=== PATIENT | female | born 1970 | race Caucasian/White ===

== ENCOUNTER 2025-02-02 12:46 | Outpatient (AMB) | payer OTHER, SELFPAY ==
--- NOTE | 2025-02-02 13:33 | A.OFFPC_ITS ---
Vital Signs 02/02/25 13:36 Height 5 ft 4 in Weight 172 lb BMI 29.5 BP 124/82 Blood Pressure Location Lt brachial Position Sitting Respiration 16 Pulse 83 Pulse Source Pulse Oximeter Temp 98.2 F Temp Source Oral Pulse Oximetry (%) 96 Oxygen Delivery Method Room Air Intake Visit Reasons: New Patient to est care/ med refills/ ? melanoma R Intake Note: Pt is here today as a New Patient to est care/ med refills/ ? melanoma Rt forearm Allergies No Known Allergies Allergy (Verified 02/03/25 15:41) Medication List - Last Reconciled 02/02/25 by Monica Perez MD amlodipine 10 mg PO DAILY atorvastatin 40 mg PO DAILY fenofibrate 54 mg PO DAILY qqbvawjvejk-rwpyegofz-zmcljikm 100-62.5-25 mcg (Trelegy Ellipta) 1 ea inhalation DAILY Tobacco use date assessed: 02/02/25 Dental Screening Dental Screen Date: 02/02/25 Did you have a dental visit in the last 12 months?: Yes Did you have a dental problem in the last 6 months where you did not have access to dental care?: No Was dental information given to patient?: Patient has dentist HPI HPI Comments History of Present Illness Details 54-year-old new patient, here to [facility] with a new PCP . No medical records available for review. Patient states she has hypertension, dyslipidemia currently on amlodipine, atorvastatin and fenofibrate. She also states that she has been diagnosed with COPD and is currently on Trelegy Ellipta, continues to smoke cigarettes, slowly cutting back. She has a hyperpigmented lesion on her right forearm, which she states has been present now for the last several months and is getting bigger. Patient is concerned that it might be skin cancer and would like a referral to Dermatology Clinic for further evaluation and management. [facility] Medical History (Updated 02/02/25 @ 14:17 by Monica Perez MD) Not ready to quit smoking History of in vitro fertilization Hx of ectopic Dyslipidemia Essential hypertension Surgical History (Updated 02/02/25 @ 14:17 by Monica Perez MD) Previous section H/O bilateral salpingectomy Family History (Updated 02/02/25 @ 13:39 by Kitty Daniels CMA) Maternal Grandfather Substance use disorder Paternal Grandmother Substance use disorder Mother Mental health disorder Social History Housing: Apartment Patient Tobacco Use Status: Current someday Tobacco user e-Cigarette/Vaping Use: Former Use service: No Current occupational status: employed Cognitive needs: No Hearing needs: No Vision needs: Yes Questionnaire PHQ-9 Over the last 2 weeks, how often have you been bothered by any of the following problems? 1. Little interest or pleasure in doing things: not at all 2. Feeling down, depressed, or hopeless: not at all 3. Trouble falling or staying asleep, or sleeping too much: not at all 4. Feeling tired or having little energy: not at all 5. Poor appetite or overeating: not at all 6. Feeling bad about yourself - or that you are a failure or have let yourself or your family down: not at all 7. Trouble concentrating on things, such as reading the newspaper or watching t elevision: not at all 8. Moving or speaking so slowly that other people could have noticed. Or the opposite - being so fidgety or restless that you have been moving around a lot more than usual: not at all 9. Thoughts that you would be better off or of hurting yourself in some way: not at all Total score: 0 Depression Screening Interpretation: Negative Depression Screening Done: Yes 17239 - PHQ-9 Billing: Yes Source: Developed by Drs. Basil Schuler, Faby Benavides, Castillo Burroughs and colleagues, with an educational hermelinda from [employer]. Thrive Questionnaire Date Thrive assessed: 02/02/25 I am a: Patient What is your living situation today?: I have a steady place to live Within the past 12 months, did the food you bought not last and you didn't have the money to get more?: Never true Within the past 12 months, did you worry whether your food would run out before you got money to buy more?: Never true Do you have trouble paying for medicines?: No Do you have trouble getting transportation to medical appointments?: No Do you have trouble paying your heating and electricity bill?: No Do you have trouble taking care of your child, family member or friend?: No Do you have trouble with day-to-day activities such as bathing, preparing meals, shopping, managing finances, etc.?: No Are you currently unemployed and looking for a job?: No Are you interested in more education?: No Please select the resources that you would like help with: None Currently or been in a relationship where the following occur: No concerns reported THRIVE Score: 0 AUDIT C Alcohol Use Questionnaire (AUDIT-C) 1. How often do you have a drink containing alcohol?: 2-3 times a week 2. How many drinks containing alcohol do you have on a typical day when you are drinking?: 1 or 2 3. How often do you have six or more drinks on one occasion?: Never Total Score: 3 Score Reviewed/Action Taken: Yes LEONOR-7 AMB Questionnaire LEONOR-7 Date LEONOR - 7 assessed: 02/02/25 Feeling nervous, anxious, or on edge: 0 = Not at all Not being able to stop or control worryin = Not at all Worrying too much about different things: 0 = Not at all Trouble relaxin = Not at all Being so restless that it is hard to sit still: 0 = Not at all Becoming easily annoyed or irritable: 0 = Not at all Feeling afraid as if something awful might happen: 0 = Not at all Total LEONOR-7 score (0-4 normal; 5-9 mild; 10-14 moderate; 15-21 severe): 0 Source: Developed by Drs. Basil Schuler, Faby Benavides, Castillo Burroughs and colleagues, with an educational hermelinda from [employer]. LEONOR-7 Assessment Billing LEONOR-7 Assessment Tool: LEONOR-7 Assessment 07969 Review of Systems Const All systems reviewed & are unremarkable except as noted in HPI and below Eyes Details: Wears bifocal lenses, goes to [employer] Skin/Breast Details: as per HPI Physical exam (Primary Care) Vital Signs: Last Vital Signs Temp 98.2 F 02/02/25 13:36 Pulse 83 02/02/25 13:36 Resp 16 02/02/25 13:36 BP 124/82 02/02/25 13:36 Pulse Ox 96 02/02/25 13:36 Oxygen Delivery Method Room Air 02/02/25 13:36 BMI result Body Mass Index 29.5 Tobacco/Smoking Status: Tobacco use Status Tobacco use date assessed 02/02/25 02/02/25 13:42 Patient Tobacco Use Status Current someday Tobacco 02/02/25 13:42 e-Cigarette/Vaping Use Former Use 02/02/25 13:42 PHQ-9: PHQ-9 Score PHQ-9: Total score 0 02/03/25 15:27 Depression Screening Interpretation: Negative Thrive Assessment: Date of Thrive Assessment Date Thrive assessed 02/02/25 02/02/25 13:35 Currently or been in a relationship where the following occur: No concerns reported Const General: no acute distress and alert Orientation/consciousness: patient oriented x3 Limitations: no limitations HENMT Ears: external ears normal General nose exam: Normal external nose present Mouth: Normal oral and palatal mucosa present and moist mucous membranes Eyes General: appearance normal, both eyes and all related structures Neck Neck: Yes full ROM, Yes no lymphadenopathy and Yes supple Resp Effort & Inspection: normal respiratory effort and able to speak in complete sentences Auscultation: clear to auscultation bilaterally Cardio Rate: regular rate Rhythm: regular rhythm Heart sounds: S1 normal heart sound present and S2 normal heart sound present GI Palpation (GI): Soft to palpation, nontender and no masses Auscultation: normal bowel sounds Skin Other: Hyperpigmented , slightly raised lesion on right forearm with blurred margins Neuro General: patient oriented x3, gait normal, tone normal, moves all extremities, Normal light touch and pain sensation and no focal motor deficits Cranial nerves: Yes CN's II-XII intact bilaterally Cognition (Neuro): normal cognition Extrem General: Yes full ROM, Yes no joint enlargement, Yes no clubbing, cyanosis or edema and Yes no calf tenderness Psych Appearance: grossly normal and well kempt Mental Status: mental status grossly normal Speech and movement: Normal speech and movement present Affect: normal affect Office Procedures Flu Questionnaire Does the patient have a severe egg allergy?: No Does the patient have severe life threatening allergies?: No Does the patient have a fever or illness today?: No Has the patient ever had Guillain-[place] Syndrome?: No Has the patient ever had any past reaction to a flu shot?: No Immunizations Fluarix [id number] (PF) 45 mcg (15 mcg x 3)/0.5 mL IM syringe Performing Provider: Monica Perez MD Performing Location: [facility] Administered by: Kitty Daniels CMA on 02/02/25 14:26 Dose Route Admin Location Dispensed Lot Number Expiration Date NDC Terminal Make Up Operator 0.5 mL IM Right Deltoid 0.5 mL [id number] 11/16/25 [id number] Immediately VIS Given Date VIS Provided VIS Publication Date 02/02/25 Single Vaccine 24 Eligibility Eligibility Date Funding Source Not [facility] Eligible 02/02/25 Private Coding Level of Care Code New Pt Level 4 (75495) Complex EM visit Add On G2211 Diagnoses Essential hypertension I10 Dyslipidemia E78.5 Skin lesion of right upper extremity L98.9 Needs flu shot Z23 Not ready to quit smoking Z72.0 Additional Codes LEONOR-7 Assessment Billing - LEONOR-7 Assessment Tool: LEONOR-7 Assessment 64362 ([id number]) PHQ-9 - 22376 - PHQ-9 Billing: Yes ([id number]) Assessment & Plan Assessment & Plan (1) Essential hypertension: Code(s): I10 - Essential (primary) hypertension Category: Medical Plan: Blood pressure at goal of less than 130/80. Continue with amlodipine at the same dose. Reinforced importance of following a low sodium diet, getting regular exercise, and lowering stress levels. Will check basic metabolic panel (2) Dyslipidemia: Code(s): E78.5 - Hyperlipidemia, unspecified Category: Medical Plan: Fasting lipid panel and liver enzymes ordered. Currently on atorvastatin and fenofibrate. Reinforced importance of following a low-cholesterol diet and getting regular exercise (3) Skin lesion of right upper extremity: Code(s): L98.9 - Disorder of the skin and subcutaneous tissue, unspecified Plan: Dermatology consult ordered for further evaluation management (4) Needs flu shot: Code(s): Z23 - Encounter for immunization Plan: Flu vaccine given today (5) Not ready to quit smoking: Code(s): Z72.0 - Tobacco use Category: Social Hx Plan: Patient strongly advised to stop smoking, as smoking damages blood vessels, degenerative of joints and spine, damage to lungs and heart., predisposes to developing certain cancers like lung, breast, bladder, colon. Recommended to try decreasing cigarette use by 1-2 cigarettes a day. Advised to monitor what triggers are for smoking so that this can be discussed on the next office visit. We can discuss different options to quit smoking when ready. Orders: Orders Aspartate Amino Transferase 02/02/25 E78.5 - Hyperlipidemia, unspecified, I10 - Essential (primary) hypertension Alanine Aminotransferase 02/02/25 E78.5 - Hyperlipidemia, unspecified, I10 - Essential (primary) hypertension Lipid Panel 02/02/25 E78.5 - Hyperlipidemia, unspecified, I10 - Essential (primary) hypertension Complete Blood Count Auto Diff 02/02/25 E78.5 - Hyperlipidemia, unspecified, I10 - Essential (primary) hypertension Vitamin D 25-OH Total 02/02/25 E78.5 - Hyperlipidemia, unspecified, I10 - Essential (primary) hypertension Influenza [id number] Immunization 02/02/25 Z23 - Encounter for immunization Basic Metabolic Panel Fasting 02/02/25 E78.5 - Hyperlipidemia, unspecified, I10 - Essential (primary) hypertension Referrals Dermatology Referral L98.9 - Disorder of the skin and subcutaneous tissue, unspecified Dermatology Referral L98.9 - Disorder of the skin and subcutaneous tissue, unspecified Medications: New atorvastatin 40 mg PO DAILY 90 tabs 3RF fenofibrate 54 mg PO DAILY 90 tabs 3RF amlodipine 10 mg PO DAILY 90 tabs 3RF
[2025-02-02 13:36] VITALS: BP 124/82; PULSE 83; RESP 16; TEMP 36.8; O2SAT 96; BMI 29.5
--- OUTSIDE RECORDS SUMMARY | 2025-02-02 16:43 | XMS_ITS | Clinical Summary ---
Author Organization [facility] [address] [facility] Address [address] [place] [address] Phone Care Team Providers Care Wine Steward/Stewardess Name Role Phone David George Primary Care Provider [phone] Allergies No known active allergies Medications amLODIPine (NORVASC) 10 mg tablet Take 1 tablet (10 mg total) by mouth 1 (one) time each day. 90 each 2 03/30/2024 Active atorvastatin (LIPITOR) 40 mg tablet Take 1 tablet (40 mg total) by mouth 1 (one) time each day. 90 each 2 03/30/2024 Active fenofibrate (LOFIBRA) 54 mg tablet Take 1 tablet (54 mg total) by mouth 1 (one) time each day. 90 each 2 03/30/2024 Active ibuprofen (ADVIL,MOTRIN) 800 mg tablet Sig - Route: Take 1 Tablet by mouth every 8 hours as needed for Pain for up to 30 days. - Oral Active Trelegy Ellipta 100-62.5-25 mcg inhalerIndicatio ns:Chronic obstructive pulmonary disease, unspecified (CMS/HCC V24, CMS/HCC V28) INHALE 1 PUFF INTO LUNGS DAILY FOR 30 DAYS 60 each 11 11/23/2024 Active Active Problems Problem Noted Date Diagnosed Date Leucocytosis 06/29/2022 Thrombocytosis 06/29/2022 Emphysema, unspecified (CMS/HCC V24, CMS/HCC V28 ) 05/02/2021 Overview (07/16/2024): PFT 05/01/21 HTN (hypertension) 09/16/2020 Hypertriglyceridemia 09/16/2020 Overview (07/16/2024): ASCVD risk is 8.2%. Colon polyps 05/22/2020 Overview (07/16/2024): Rpt CN in one year Asthma 03/17/2019 GERD (gastroesophageal reflux disease) 9 Encounters Date Type Department Care Team Description 01/25/2025 9:30 AM EDT Ancillary Procedure Pulmonolgy [facility] [address] [facility] [address] [place] [address] Chronic obstructive pulmonary disease, unspecified COPD type ([facility] V24, [facility] V28) 01/11/2025 8:45 AM EDT Office Visit Pulmon[address] [place] [address] Eloisa Castillo MD Chronic obstructive pulmonary disease, unspecified COPD type ([facility] V24, [facility] V28) (Primary Dx); Tobacco abuse from Last 3 Months Immunizations Name Administration Dates Next Due Influenza Quadravalent, MDCK , 0.5ml, preservative free (Flucelvax) 6mo and older 03/17/2020,04/07/2019 [employer] SARS-CoV-2 COVID-19, mRNA, LNP-S, preservative free 11/14/2020 Pneumococcal polysaccharide 23 valent (Pneumovax 23) 2yo and older 09/12/2020 Tdap Tetanus diptheria acell ular pertussis (Boostrix; Adacel) 7yo and older 09/12/2020 Surgical History Surgery Date Site/Laterality Comments SECTION 05/08/2007 PROCEDURE: HISTORICAL WISDOM TOOTH EXTRACTION PROCEDURE: HISTORICAL WISDOM TEETH EXTRACTION OTHER SURGICAL HISTORY PROCEDURE: SD TX ECTOPIC W/O SALPING&/OOPHORECTOMY; COMMENT: fallopian tubes removed b/l Medical History Medical History Date Comments Asthma DX:Asthma HTN (hypertension) 09/16/2020 DX:HTN (hyper tension) Hyperlipidemia 09/16/2020 DX:Hyperlipidemi a Family History Medical History Relation Name Comments Heart attack Father Heart attack Maternal Grandfather Other cancer Maternal Grandmother found m etastatic, unknown primary Multiple sclerosis Mother Asthma Son Pancreatic cancer Uncle Relation Name Status Comments Daughter Alive Father (Age 57) Maternal Grandfather Maternal Grandmother Mother Alive Paternal Grandfather Paternal Grandmother Sister Alive Son Alive Uncle Other Social History Tobacco Use Types Packs/Day Years Used Date Smoking Tobacco: Every Day Cigarettes Smokeless Tobacco: Never Tobacco Cessation:Ready to Q uit: Not Asked; Counseling Given: Not Answered Comments:Smoking 10 cigs daily Alcohol Use Standard Drinks/Week Comments Yes 0 (1 standard drink = 0.6 oz pur e alcohol) Comments Unknown Sex and Gender Information Value Date Recorded Sex Assigned at Not on file Legal Sex Female 10:01 AM EST Gender Identity Not on file Sexual Orientation Not on file Obstetrics History Last Filed Vital Signs Vital Sign Reading Time Taken Comments Blood Pressure 100/66 01/11/2025 8:45 AM EDT Pulse 87 01/11/2025 8:45 AM EDT Temperature 36.2 C (97.2 F) 01/11/2025 8:45 AM EDT Respiratory Rate 20 01/11/2025 8:45 AM EDT Oxygen Saturation 95% 01/11/2025 8:45 AM EDT Inhaled Oxygen Concentration - - Weight 79.3 kg (174 lb 12.8 oz) 01/11/2025 8:45 AM EDT Height 162.6 cm (5' 4 ) 01/11/2025 8:45 AM EDT Body Mass Index 30 01/11/2025 8:45 AM EDT Plan of Treatment Upcoming Encounters Date Type Department Care Team (Late st Contact Info) Description 04/12/2025 9:20 AM EST Appointment Radiology Department [address] [phone] 01/10/2026 9:30 AM EDT Office Visit Pulmonolgy - [facility] [address] [facility] [address] [place] [id number] Eloisa Castillo MD [address] [facility] [address] [place] [address] Health Maintenance Due Date Last Done Comments Hepatitis B Vaccines (1 of 3 - 19+ 3-dose series) 1988 Zoster Vaccines (1 of 2) 10/02/2019 Pneumococcal Vaccine: 50+ Years (2 of 2 - PCV) 09/12/2021 09/12/2020 HIV Screening 04/28/2022 Social Influencers of Health Screening 04/28/2022 Depression Screening 05/20/2024 07/29/2023 Hypertension/CHF/CAD Annual BMP Blood Test 07/28/2024 07/29/2023 Colorectal Cancer Screening: Colonoscopy 08/29/2024 08/29/2021, 08/28/2021 COVID-19 Vaccine ( season) 2025 07/09/2022, 11/14/2020, 10/24/2020 Influenza Vaccine (#1) 2025 , 03/17/2020, 04/07/2019 Breast Cancer Screening 10/20/2025 10/21/19 24, 10/21/2023, 10/08/2022, Additional history exists Cervical Cancer Screening: HPV 09/22/2028 09/23/2023 Cholesterol Screening (Lipid Panel) 01/05/2029 01/06/2024, 01/06/2024 DTaP,Tdap,and Td Vaccines (2 - Td or Tdap) 09/12/2030 09/12/2020 Hepatitis C Screening Completed 07/23/2022 HIB Vaccines Aged Out No longer eligi ble based on patient's age to complete this topic HPV Vaccines Aged Out No longer eligi ble based on patient's age to complete this topic Hepatitis A Vaccines Aged Out No long er eligible based on patient's age to complete this topic IPV Vaccines Aged Out No longer eligi ble based on patient's age to complete this topic MMR Vaccines Aged Out No longer eligi ble based on patient's age to complete this topic Meningococcal ACWY Vaccine Aged Out N o longer eligible based on patient's age to complete this topic Meningococcal B Vaccine Aged Out No l onger eligible based on patient's age to complete this topic RSV Immunization Patients Under 20 months Aged Out No longer eligible based on patient's age to complete this topic Varicella Vaccines Aged Out No longer eligible based on patient's age to complete this topic Procedures Procedure Name Priority Date/Time Associated Diagnosis Comments PULMONARY FUNCTION TESTING Routine 01/25/2025 9:38 AM EDT Chronic obstructive pulmonary disease, unspecified COPD type (CMS/HCC V24, CMS/HCC V28) LIPID PANEL Routine 01/06/2024 SCREENING MAMMOGRAPHY BI 2-VIEW BREAST INC CAD Routine 10/21/2023 8:11 AM EDT Encounter for screening mammogram for malignant neoplasm of breast HPV Routine 09/23/2023 DEPRESSION SCREENING Routine 07/29/2023 ANNUAL BMP BLOOD TEST Routine 07/29/2023 HEPATITIS C SCREENING Routine 07/23/2022 COLONOSCOPY Routine 08/28/2021 from Last 3 Months or Most Recently Relevant to Health Maintenance Results * Pulmonary function testing: Carbon Monoxide Diffusing Capacity, Spirometry with Bronchodilator, Vital Capacity Test, Flow Volume Loop (01/25/2025 9:38 AM EDT) Impressions Eloisa Castillo MD - 01/25/2025 9:38 AM EDT DATE OF SERVICE: 01/25/25 SPIROMETRY: FEV1 is 78 % predicted and an FVC is 74 % predicted. The FEV1/FVC ratio is 105% of normal, no response to bronchodilators noted. LUNG VOLUMES: Total lung capacity (TLC): 83% predicted. Residual volume (RV): 86% predicted RV/TLC ratio is 100% of normal DIFFUSION CAPACITY: DLCO 61% predicted. DlCO/VA 65% of predicted COMPARISONS: INTERPRETATION: This pulmonary function test shows mild restrictive changes with proportional decline in the diffusion capacity. When compared to the last test from 2020, there has been improvement in FEV1 and DLCO Eloisa Castillo MD us Eloisa Castillo MD PFT ORDERABLES Final Result * Lipid panel (01/06/2024) LDL/HDL Ratio 3 0 - 4 Triglycerides 108 0 - 150 mg/dL Cholesterol 154 0 - 200 mg/dL HDL 57 >=40 mg/dL LDL Cholesterol 76 0 - 100 mg/dL Blood Venous blood specimen / Unknown us Historical Provider LAB BLOOD ORDERABLES Airam l Result * SCREENING MAMMOGRAPHY BI 2-VIEW BREAST INC CAD (10/21/2023 8:11 AM EDT) Anatomical Region Laterality Modality Radiographic Moriah ging 10/08/2022 8:37 AM EDT Narrative 10/21/2023 9:27 AM EDT This is a summary report. The complete report is available in the patient's medical record. If you cannot access the medical record, please contact the sending organization for a detailed fax or copy. Study: SCREENING MAMMOGRAPHY BI 2-VIEW BREAST INC CAD Technique: Bilateral full-field digital screening mammography is obtained and read in conjunction with computer aided detection. Tomosynthesis as well as 2D C-View imaging were obtained. Comparison: Comparison made to multiple prior, most recent October 08, 2022, and most remote March 22, 2014. Breast composition: There are scattered areas of fibroglandular density. Bilateral breasts: No significant masses, suspicious calcifications or other abnormalities are seen in either breast. IMPRESSION: Impression: Bilateral breasts: Negative, no specific mammographic evidence of malignancy. Normal interval follow-up is recommended in 12 months. BI-RADS: Category 1: Negative Procedure Note Federico Oliva MD - 03/04/2024 This is a summary report. The complete report is available in thepatient's medical record. If you cannot access the medical record, pleasecontact the sending organization for a detailed fax or copy. Study: SCREENING MAMMOGRAPHY BI 2-VIEW BREAST INC CAD Technique: Bilateral full-field digital screening mammography is obtainedand read in conjunction with computer aided detection. Tomosynthesis aswell as 2D C-View imaging were obtained. Comparison: Comparison made to multiple prior, most recent October 08, 2022,and most remote March 22, 2014. Breast composition: There are scattered areas of fibroglandular density. Bilateral breasts: No significant masses, suspicious calcifications orother abnormalities are seen in either breast. IMPRESSION: Impression: Bilateral breasts: Negative, no specific mammographic evidence ofmalignancy. Normal interval follow-up is recommended in 12 months. BI-RADS: Category 1: Negative Fay Dominguez CNM IMG XR PROCEDURES Final Resul t * Cervical Cancer Screening: HPV (09/23/2023) [facility] Cervical Cancer Screening: HPV Negative Abstracted Result [facility] Provider HEALTH MAINTENANCE Final Result * Annual BMP Blood Test (07/29/2023) [facility] Annual BMP Blood Test Abstracted Result [facility] Provider HEALTH MAINTENANCE Final Result * Depression Screening (07/29/2023) [facility] Depression Screening Abstracted Result [facility] Provider HEALTH MAINTENANCE Final Result * Hepatitis C Screening (07/23/2022) [facility] Hepatitis C Screening Abstracted [facility] Provider HEALTH MAINTENANCE Final Result * Colonoscopy (08/28/2021) [facility] Colonoscopy No interpretation abstracted Anatomical Region Laterality Modality Other Result [facility] Provider HEALTH MAINTENANCE Final Result from Last 3 Months or Most Recently Relevant to Health Maintenance Insurance [facility] [employer] Care Teams Wine Steward/Stewardess Relationship Specialty Start Date End Date David George DO [address] [place] [address] PCP - General Internal Medicine 11/16/24
== END 2025-02-02 14:33 | disposition home or self-care (01) ==
PROVIDERS: PCP Internal Medicine; Visit Provider Internal Medicine
DX: I10 Essential (primary) hypertension (principal); E78.5 Hyperlipidemia, unspecified; L98.9 Disorder of the skin and subcutaneous tissue, unspecified; Z23 Encounter for immunization; Z72.0 Tobacco use

== ENCOUNTER → 2025-02-02 12:46 | Outpatient (BNVA) | payer OTHER, SELFPAY | PROVIDERS: PCP Internal Medicine; Visit Provider Internal Medicine | DX: I10 Essential (primary) hypertension (principal); J44.9 Chronic obstructive pulmonary disease, unspecified; E78.5 Hyperlipidemia, unspecified; L98.9 Disorder of the skin and subcutaneous tissue, unspecified; Z23 Encounter for immunization; Z72.0 Tobacco use; Z79.899 Other long term (current) drug therapy | CPT/HCPCS: 90471; 90656; 96127; 99202 ==

== ENCOUNTER 2025-02-05 08:19 | Outpatient (REF) | payer OTHER, SELFPAY ==
--- OUTSIDE RECORDS SUMMARY | 2025-02-05 08:51 | XMS_ITS | Clinical Summary ---
[facility] Organization [facility] Address [address] [place] [address] Care Team Providers Care Mma Fighter Name Role Phone David George DO Primary Care Provider [phone] Allergies No known active allergies Medications Medication Sig Dispensed Refills Start Date End Date Status chlorthalidone (HYGROTON) 25 MG tablet TAKE 1 TABLET BY MOUTH EVERY DAY 30 tablet 0 08/09/2022 Active Active Problems Problem Noted Date Diagnosed Date Leucocytosis 06/29/2022 Thrombocytosis 06/29/2022 Family History Medical History Relation Name Comments Cancer Maternal Grandmother Cancer Maternal Uncle pancreatic Relation Name Status Comments Maternal Grandmother Maternal Uncle Social History Tobacco Use Types Packs/Day Years Used Date Smoking Tobacco: Every Day Cigarettes 0.5 Smokeless Tobacco: Never Alcohol Use Standard Drinks/Week Comments Not Currently 6 (1 standard drink = 0.6 oz pur e alcohol) Sex and Gender Information Value Date Recorded Sex Assigned at Not on file Gender Identity Not on file Sexual Orientation Not on file Job Start Date Occupation Industry Not on file Not on file Not on file Last Filed Vital Signs Vital Sign Reading Time Taken Comments Blood Pressure 144/87 06/29/2022 1:07 PM EST Pulse 101 06/29/2022 1:07 PM EST Temperature 36.8 C (98.3 F) 06/29/2022 1:07 PM EST Respiratory Rate - - Oxygen Saturation 98% 06/29/2022 1:07 PM EST Inhaled Oxygen Concentration - - Weight 62.3 kg (137 lb 6.4 oz) 06/29/2022 1:07 P M EST Height 162.6 cm (5' 4 ) 06/29/2022 1:07 PM EST Body Mass Index 23.58 06/29/2022 1:07 PM EST Plan of Treatment Health Maintenance Due Date Last Done Comments Hepatitis B Vaccines (1 of 3 - 3-dose series) 1969 Hepatitis C Screening 1969 Depression Screening 1981 Preventative Health Evaluation 10/02/1987 Cervical Cancer Screening (Pap Smear) 1990 Colon Cancer Screening (Colonoscopy) 2014 Breast Cancer Screening (Mammogram) 10/02/2019 Shingrix-Zoster Vaccine (1 o f 2) 10/02/2019 Pneumococcal Vaccine (2 of 2 - PCV) 09/12/2021 09/12/2020 COVID-19 Vaccine (3 - 2024-2 6 season) 2025 11/14/2020, 10/24/2020 Influenza Vaccine (#1) 2025 , 04/07/2019 DTap / Tdap / Td (2 - Td or Tdap) 09/12/2030 09/12/2020 RSV Ped < 20 months Aged Out No longe r eligible based on patient's age to complete this topic Care Teams Mma Fighter Relationship Specialty Start Date End Date David George DO [address] [place], [place] PCP - General Family Medicine 04/11/22
--- OUTSIDE RECORDS SUMMARY | 2025-02-05 08:51 | XMS_ITS | Encounter Summary ---
Author Organization [facility] Address [address] [place] [address] Care Team Providers Care Deputy Chief Counsel Name Role Phone David George DO Primary Care Provider Alma Gerda Gardner MD Unavailable Tere Peters MD Primary Care Provider Un available Reason for Visit * Reason Comments E-prescribe Rx Request Encounter Details Date Type Department Care Team Description 07/01/[address] [address] David George DO E-prescribe Rx Request Social History Tobacco Use Types Packs/Day Years Used Date Smoking Tobacco: Every Day Cigarettes 0.5 Smokeless Tobacco: Never Comments:10 cigs daily Alcohol Use Standard Drinks/Week Comments Yes 0 (1 standard drink = 0.6 oz pur e alcohol) Occasional Alcohol Habits Answer Date Recorded How often do you have a drink containing alcohol ? 2-4 times a month 03/17/2020 How many drinks containing a lcohol do you have on a typical day when you are drinking? 1 or 2 03/17/2020 How often do you have six or more drinks on one occasion? Never 03/17/2020 Sex Assigned at Date Recorded Not on file Job Start Date Occupation Industry Not on file Not on file Not on file documented as of this encounter Plan of Treatment Not on file documented as of this encounter Visit Diagnoses Diagnosis Hypertriglyceridemia Pure hyperglyceridemia documented in this encounter Care Teams Deputy Chief Counsel Relationship Specialty Start Date End Date David George DO PCP - General Internal Medicine 06/26/21 11/11/23 Tere Peters MD PCP - General Internal Medicine 11/12/23 Gerda Estrada MD Specialist Lung Cancer Physics Teacher 09/11/21 documented as of this encounter
--- OUTSIDE RECORDS SUMMARY | 2025-02-05 08:51 | XMS_ITS | Encounter Summary ---
Author Organization [facility] Address [address] [place] [address] Care Team Providers Care Environmental Specialist Name Role Phone David George DO Primary Care Provider Gerda Sanchez MD Unavailable Tere Peters MD Primary Care Provider Un available Reason for Visit * Reason Comments E-prescribe Rx Request Encounter Details Date Type Department Care Team Description 04/10/2023 Refill Adult Medicine [facility] [address] [place] [address] Donny Castillo MD [address] [place] [address] E-prescribe Rx Request Social History Tobacco Use [...] file Not on file Not on file COVID-19 Exposure Response Date Recorded In the last 10 days, have yo u been in contact with someone who was confirmed or suspected to have Coronavirus/COVID-19? No / Unsure 03/14/2023 10:58 AM EDT documented as of this encounter Miscellaneous Notes * Telephone Encounter - Ceci Alfonso M.A. - 04/10/2023 9:34 AM EST Rx pended * Telephone Encounter - Ruthann Coyle - 04/10/2023 9:30 AM EST Refills Last office visit: 03/14/23 Last pcp: same Next office visit: 07/29/23 documented in this encounter Plan of Treatment Not on file documented as of this encounter Visit Diagnoses Not on filedocumented in this encounter Care Teams Environmental Specialist Relationship Specialty Start Date End Date David George DO PCP - General Internal Medicine 06/26/21 11/11/23 Tere Peters MD PCP - General Internal Medicine 11/12/23 Gerda Estrada MD Specialist Lung Cancer Thimble Press Operator 09/11/21 documented as of this encounter
--- OUTSIDE RECORDS SUMMARY | 2025-02-05 08:51 | XMS_ITS | Encounter Summary ---
Author Organization [facility] Address [address] [place] [address] Care Team Providers Care Collision Center Manager Name Role Phone David George DO Primary Care Provider Almaa Gerda Gardner MD Unavailable Tere Peters MD Primary Care Provider Un available Encounter Details Date Type Department Care Team Description 09/23/2023 Child Development Instructor Report Medical Records [address] [place] [address] [facility] [address] [place] [address] Social History Tobacco Use Types Packs/Day Years [...] on filedocumented in this encounter Care Teams Collision Center Manager Relationship Specialty Start Date End Date David George DO PCP - General Internal Medicine 06/26/21 11/11/23 Tere Peters MD PCP - General Internal Medicine 11/12/23 Gerda Estrada MD Specialist Lung Cancer [employer] Financials Consultant 09/11/21 documented as of this encounter
--- OUTSIDE RECORDS SUMMARY | 2025-02-05 08:51 | XMS_ITS | Encounter Summary ---
Author Organization [facility] Address [address] [place] [address] Care Team Providers Care Machine Learning Intern Name Role Phone David George DO Primary Care Provider Almaa Gerda Gardner MD Unavailable Tere Peters MD Primary Care Provider Un available Encounter Details Date Type Department Care Team Description 09/20/2022 Buck Presser Report Medical Records [address] [place] [address] Center, [facility] [address] [place] [address] Social History Tobacco Use Types Packs/Day Years [...] on filedocumented in this encounter Care Teams Machine Learning Intern Relationship Specialty Start Date End Date David George DO PCP - General Internal Medicine 06/26/21 11/11/23 Tere Peters MD PCP - General Internal Medicine 11/12/23 Gerda Estrada MD Specialist Lung Cancer Mainstreaming Facilitator 09/11/21 documented as of this encounter
--- OUTSIDE RECORDS SUMMARY | 2025-02-05 08:51 | XMS_ITS | Clinical Summary ---
Author Organization [facility] Address [address] [place] [address] Care Team Providers Care Highway Painter Helper Name Role Phone Gerda Estrada MD Unavailable Tere Peters MD Primary Care Provider Un available Allergies No known active allergies Medications Medication Sig Dispensed Refills Start Date End Date Status ibuprofen (ADVIL,MOTRIN) 800 MG tablet Take 1 Tablet by mouth every 8 hours as needed for Pain for up to 30 days. 30 Tablet 0 03/14/2023 Active atorvastatin (LIPITOR) 40 MG tabletIndications:Mixed hyperlipidemia TAKE 1 TABLET BY MOUTH EVERY DAY 90 Tablet 1 10/30/2023 Active Zbxukxgrmed-Ywtbgkkir-M ilant (Trelegy Ellipta) 100-62.5-25 MCG/ACT AEROSOL POWDER,BREATH ACTIVATEDIndications:Ch ronic obstructive pulmonary disease, unspecified (HCC) INHALE 1 PUFF INTO LUNGS DAILY FOR 30 DAYS 60 Each 11 12/12/2023 Active fenofibrate (TRICOR) 54 MG tabletIndications:Hyper triglyceridemia TAKE 1 TABLET BY MOUTH EVERY DAY 90 Tablet 1 01/29/2024 Active amlodipine (NORVASC) 10 MG tablet TAKE 1 TABLET BY MOUTH EVERY DAY 90 Tablet 0 03/06/2024 Active Active Problems Problem Noted Date Leukocytosis 07/23/2022 Emphysema, unspecified 05/02/2021 Overview: PFT 05/01/21 HTN (hypertension) 09/16/2020 Hypertriglyceridemia 09/16/2020 Overview: ASCVD risk is 8.2%. Colon polyps 05/22/2020 Overview: Rpt CN in one year Tobacco abuse 03/17/2019 Asthma 03/17/2019 GERD (gastroesophageal reflux disease) 1 Immunizations Name Administration Dates Next Due COVID-19 (Pfizer) Pt Reported 11/14/2020, 021 Influenza Vaccine-preservati ve Free-quadrivalent 4 Years 03/17/2020,04/07/2019 Pneumoccoccal(Adult) Polysaccharide PPSV23 09/12 Tdap 09/12/2020 Family History Medical History Relation Name Comments [place] Father [place] Maternal Grandfather Cancer, Other Maternal Grandmother found metastatic, unknown primary Multiple Sclerosis Mother Asthma Son Cancer of the Pancreas Uncle Relation Name Status Comments Daughter Alive Father (Age 57) Maternal Grandfather Maternal Grandmother Mother Alive Paternal Grandfather Paternal Grandmother Sister Alive Son Alive Uncle Other Social History Tobacco Use Types Packs/Day Years Used Date Smoking Tobacco: Every Day Cigarettes 0.5 Smokeless Tobacco: Never Tobacco Cessation:Ready to Q uit: Not Asked; Counseling Given: Not Answered Comments:10 cigs daily Alcohol Use Standard Drinks/Week [...] Sign Reading Time Taken Comments Blood Pressure 112/66 01/17/2024 9:15 AM EDT Pulse 84 01/17/2024 9:15 AM EDT Temperature 36.8 C (98.2 F) 01/17/2024 9:15 AM EDT Respiratory Rate 14 01/17/2024 9:15 AM EDT Oxygen Saturation 95% 01/17/2024 9:15 AM EDT Inhaled Oxygen Concentration - - Weight 75.8 kg (167 lb) 01/17/2024 9:15 AM EDT Height 162.6 cm (5' 4 ) 12/30/2023 9:35 AM EDT Body Mass Index 28.67 12/30/2023 9:35 AM EDT Plan of Treatment Health Maintenance Due Date Last Done Comments SHINGLES VACCINE (1 of 2) 10/02/2019 BMI CHECK/ADVISE 05/20/2024 12/30/2023, 10/2023, 09/23/2023, Additional history exists DEPRESSION SCREENING/FOLLOWUP 05/20/2024, 07/23/2022, 10/30/2021, Additional history exists SOCIAL NEEDS SCREENING 05/20/2024 MAMMOGRAM 10/20/2024 10/21/2023, 09/18, 06/05/2021, Additional history exists Covid-19 Vaccine (2022- 4 season) 2025 11/14/2020, 10/24/2020 INFLUENZA (#1) 2025 03/17/2020, 04/07/2019 BASELINE HEALTH EXAM 40-64 07/28/202507/28, 07/29/2023, 07/23/2022, Additional history exists TOBACCO CHECK/ADVISE 01/16/2026 01/17/2024, 11/26/2022, 07/23/2022, Additional history exists CERVICAL CANCER SCREENING 09/22/2026 09/23/2023, CHOLESTEROL SCREENING 01/05/2029 01/06/2024 , 01/28/2023, 07/23/2022, Additional history exists DTAP/TDAP/TD (2 - Td or Tdap) 09/12/2030 09/12/2020 COLON CANCER SCREENING 08/29/2031 08/28/2021, 2019 PNEUMOCOCCAL VACCINE FOR HIG H RISK PATIENTS (#2) 2034 09/12/2020 HEPATITIS C SCREENING Completed 07/23/[address]ter Helper Relationship Specialty Start Date End Date eTre Peters MD PCP - General Internal Medicine 11/12/23 Gerda Estrada MD Specialist Lung Cancer Senior Information Developer 09/11/21
--- OUTSIDE RECORDS SUMMARY | 2025-02-05 08:51 | XMS_ITS | Encounter Summary ---
Author Organization [facility] Address [address] [place] [address] Care Team Providers Care Embroidery Operator Name Role Phone David George DO Primary Care Provider Gerda Sanchez MD Unavailable Tere Peters MD Primary Care Provider Un available Reason for Visit * Reason Comments E-prescribe Rx Request Encounter Details Date Type Department Care Team Description 03/18/2023 Refill Adult Medicine [facility] [address] [place] [address] Donny Castillo MD [address] [place] [address] E-prescribe Rx Request Social History Tobacco Use [...] encounter Miscellaneous Notes * Telephone Encounter - Abigail Chandu - 03/18/2023 2:27 PM EDT Refills ?? Last office visit: 01/28/23 ?? Last pcp: same ?? Next office visit: 07/29/23 documented in this encounter Plan of Treatment Not on file documented as of this encounter Visit Diagnoses Not on filedocumented in this encounter Care Teams Embroidery Operator Relationship Specialty Start Date End Date David George DO PCP - General Internal Medicine 06/26/21 11/11/23 Tere Peters MD PCP - General Internal Medicine 11/12/23 Gerda Estrada MD Specialist Lung Cancer Editorial Manager 09/11/21 documented as of this encounter
--- OUTSIDE RECORDS SUMMARY | 2025-02-05 08:51 | XMS_ITS | Encounter Summary ---
Author Organization [facility] Address [address] [place] [address] Care Team Providers Care Extermination Supervisor Name Role Phone David George DO Primary Care Provider Gerda Sanchez MD Unavailable Tere Peters MD Primary Care Provider Un available Encounter Details Date Type Department Care Team Description 08/31/2021 Orders Only Medical Records [address] [place] [address] Troy Conti MD [address] [facility] [address] [place] [address] Social History Tobacco Use Types Packs/Day Years Used Date Smoking Tobacco: Every Day Cigarettes 0.5 30 Smokeless Tobacco: Never Comments:Patch, Hypnosis, We llbutrin in the past with minimal relief Alcohol Use Standard Drinks/Week Comments Yes 0 (1 standard drink = 0.6 oz pur e alcohol) occ Alcohol Habits Answer Date Recorded How often [...] suspected to have Coronavirus/COVID-19? No / Unsure 08/14/2021 10:43 AM EDT documented as of this encounter Plan of Treatment Not on file documented as of this encounter Procedures Procedure Name Priority Date/Time Associated Diagnosis Comments OUTSIDE PATHOLOGY Routine 08/28/2021 documented in this encounter Results * OUTSIDE PATHOLOGY (08/28/2021) Troy Conti MD OUTSIDE LAB documented in this encounter Visit Diagnoses Not on filedocumented in this encounter Care Teams Extermination Supervisor Relationship Specialty Start Date End Date David George DO PCP - General Internal Medicine 06/26/21 11/11/23 Tere Peters MD PCP - General Internal Medicine 11/12/23 Gerda Estrada MD Specialist Lung Cancer Duplication Specialist 09/11/21 documented as of this encounter
--- OUTSIDE RECORDS SUMMARY | 2025-02-05 08:51 | XMS_ITS | Encounter Summary ---
Author Organization [facility] Address [address] [place] [address] Care Team Providers Care Flume Maker Name Role Phone Gerda Estrada MD Unavailable Tere Peters MD Primary Care Provider Un available Reason for Visit * Reason Comments E-prescribe Rx Request Encounter Details Date Type Department Care Team Description 12/10/2023 Refill Pulmonology - [place] [address] [facility] [address] [place] [address] Eloisa Castillo MD [address] [place] [address] E-prescribe Rx Request Social History Tobacco Use [...] on file documented as of this encounter Miscellaneous Notes * Telephone Encounter - Bakari Cardenas - 12/10/2023 3:13 PM EDT Flakita: 11/26/2022 Nov: 01/17/2024 documented in this encounter Plan of Treatment Not on file documented as of this encounter Visit Diagnoses Diagnosis Chronic obstructive pulmonary disease, unspecified (HCC) documented in this encounter Care Teams Flume Maker Relationship Specialty Start Date End Date Tere Peters MD PCP - General Internal Medicine 11/12/23 Gerda Estrada MD Specialist Lung Cancer Stamp Pad Maker 09/11/21 documented as of this encounter
--- OUTSIDE RECORDS SUMMARY | 2025-02-05 08:51 | XMS_ITS | Encounter Summary ---
Author Organization [facility] Address [address] [place] [address] Care Team Providers Care Financial Accountant Name Role Phone David George DO Primary Care Provider Gerda Sanchez MD Unavailable Tere Peters MD Primary Care Provider Un available Reason for Visit * Reason Comments E-prescribe Rx Request Encounter Details Date Type Department Care Team Description 02/26/2023 Refill Adult Medicine [address] [address] David George DO E-prescribe Rx Request Social [...] Recorded In the last 10 days, have judie armstrong been in contact with someone who was confirmed or suspected to have Coronavirus/COVID-19? No / Unsure 01/28/2023 8:41 AM EDT documented as of this encounter Miscellaneous Notes * Telephone Encounter - Ruthann Coyle - 02/26/2023 11:45 AM EDT Refills Last office visit: 01/28/23 Last pcp: same Next office visit: 07/29/23 documented in this encounter Plan of Treatment Not on file documented as of this encounter Visit Diagnoses Not on filedocumented in this encounter Care Teams Financial Accountant Relationship Specialty Start Date End Date David George DO PCP - General Internal Medicine 06/26/21 11/11/23 Tere Peters MD PCP - General Internal Medicine 11/12/23 Gerda Estrada MD Specialist Lung Cancer Communication Spec 09/11/21 documented as of this encounter
--- OUTSIDE RECORDS SUMMARY | 2025-02-05 08:51 | XMS_ITS | Encounter Summary ---
Author Organization [facility] Address [address] [place] [address] Care Team Providers Care Cash Register Repairer Name Role Phone Stephen Choi MD Primary Care Provider Unavailable David George DO Primary Care Provider UnavailGerda Purvis MD Unavailable Tere Peters MD Primary Care Provider Un available Reason for Visit * Reason Onset Date Comments er follow up 03/16/2019 Encounter Details Date Type Department Care Team Description 03/16/2019 Telephone Adult Medicine - [address] [address] Stephen Choi MD er follow up Social History Tobacco Use Types Packs/Day Years Used Date Smoking Tobacco: Every Day Cigarettes 1 30 Smokeless Tobacco: Current Comments:Patch, Hypnosis, We llbutrin in the past with minimal relief Alcohol Use Standard Drinks/Week Comments Yes 0 (1 standard drink = 0.6 oz pur e alcohol) Alcohol Habits Answer Date Recorded How often [...] encounter Miscellaneous Notes * Telephone Encounter - Jordyn Solorio M.A. - 03/16/2019 3:56 PM EDT Printed encounter to request notes. * Telephone Encounter - Jenelle Olya - 03/16/2019 10:27 AM EDT ER follow-up appointment booked YES 03/17/19 If ER or UC follow up, can be booked with [facility] or . If hospital admission follow up MUST be booked with a physician Appointment time: 10:30AM Provider [facility] with[facility] at: [facility] ER Date of visit: 03/14/19* Was this only an ER/UC visit or was the patient admitted to the hospital? ER visit onlyER visit only If patient was admitted what was the date of discharge? N/A Reason/diagnosis for visit or stay: Chest Pain and shortness of breathe Was visit or stay related to an injury? NO If yes, what was the date of injury (DOI)? N/A If yes, was the injury due to N/A Tests performed: Lab: YES X-ray: YES EKG: YES Other tests. If yes, what?; N/A documented in this encounter Plan of Treatment Not on file documented as of this encounter Visit Diagnoses Not on filedocumented in this encounter Care Teams Cash Register Repairer Relationship Specialty Start Date End Date Stephen Choi MD PCP - General Internal Medicine 05/15/18 06/25/21 David George DO PCP - General Internal Medicine 06/26/21 11/11/23 Tere Peters MD PCP - General Internal Medicine 11/12/23 Gerda Estrada MD Specialist Lung Cancer Treating Inspector 09/11/21 documented as of this encounter
--- OUTSIDE RECORDS SUMMARY | 2025-02-05 08:51 | XMS_ITS | Clinical Summary ---
Author Organization [facility] Address [address] [place] [address] Phone Care Team Providers Care Supervisor Car Installations Name Role Phone David George Primary Care Provider [phone] Allergies No known active allergies Medications amLODIPine [...] Description 01/25/2025 9:30 AM EDT Ancillary Procedure Pulmonology [address] [address] Chronic obstructive pulmonary disease, unspecified COPD type ([facility] V24, [facility] V28) 01/11/2025 8:45 AM EDT Office Visit Pulmonology [address] [address] Eloisa Castillo MD Chronic obstructive pulmonary disease, unspecified COPD type ([facility] V24, [facility] V28) (Primary Dx); Tobacco abuse from Last 3 Months Immunizations Name Administration Dates Next Due Influenza Quadravalent, MDCK , 0.5ml, preservative free (Flucelvax) 6mo and older 03/17/2020,04/07/2019 [employer] SARS-CoV-2 COVID-19, mRNA, LNP-S, preservative free 11/14/2020 Pneumococcal polysaccharide 23 valent (Pneumovax 23) 2yo and older 09/12/2020 Tdap Tetanus diptheria acell ular pertussis (Boostrix; Adacel) 7yo and older 09/12/2020 Surgical History Surgery Date Site/Laterality Comments SECTION 05/08/2007 PROCEDURE: HISTORICAL WISDOM TOOTH EXTRACTION PROCEDURE: HISTORICAL WISDOM TEETH EXTRACTION OTHER SURGICAL HISTORY PROCEDURE: [place] ECTOPIC W/O SALPING&/OOPHORECTOMY; COMMENT: fallopian tubes [...] 04/12/2025 9:20 AM EST Appointment Radiology Department [address] [address] 01/10/2026 9:30 AM EDT Office Visit Pulmonology - [place] [address] [phone] Eloisa Castillo MD [address] [facility] [address] [place] [address] Health Maintenance Due Date Last Done Comments [...] t * Cervical Cancer Screening: HPV (09/23/2023) [facility] Cervical Cancer Screening: HPV Negative Abstracted [facility] Provider HEALTH MAINTENANCE Final Result * Annual BMP Blood Test (07/29/2023) [facility] Annual BMP Blood Test Abstracted Result [facility] Provider HEALTH MAINTENANCE Final Result * Depression Screening (07/29/2023) [facility] Depression Screening Abstracted Result [facility] Provider HEALTH MAINTENANCE Final Result * Hepatitis C Screening (07/23/2022) [facility] Hepatitis C Screening Abstracted [facility] Provider HEALTH MAINTENANCE Final Result * Colonoscopy (08/28/2021) [facility] Colonoscopy No interpretation abstracted Anatomical Region Laterality Modality Other Result [facility] Provider HEALTH MAINTENANCE Final Result from Last 3 Months or Most Recently Relevant to Health Maintenance Insurance [facility] PUBLIC PLANS Care Teams Supervisor Car Installations Relationship Specialty Start Date End Date David George DO [address] [place] [address] PCP - General Internal Medicine 11/16/24
--- OUTSIDE RECORDS SUMMARY | 2025-02-05 08:51 | XMS_ITS | Encounter Summary ---
Author Organization [facility] Address [address] [place] [address] Care Team Providers Care Horse Breeder Name Role Phone David George DO Primary Care Provider Gerda Sanchez MD Unavailable Tere Peters MD Primary Care Provider Un available Reason for Visit * Reason Comments E-prescribe Rx Request Encounter Details Date Type Department Care Team Description 07/29/2023 Refill Adult Medicine [address] [address] David George DO E-prescribe Rx Request Social [...] * Telephone Encounter - Ruthann Coyle - 07/30/2023 10:17 AM EDT duplicate documented in this encounter Plan of Treatment Not on file documented as of this encounter Visit Diagnoses Diagnosis Hypertriglyceridemia Pure hyperglyceridemia documented in this encounter Care Teams Horse Breeder Relationship Specialty Start Date End Date David George DO PCP - General Internal Medicine 06/26/21 11/11/23 Tere Peters MD PCP - General Internal Medicine 11/12/23 Gerda Estrada MD Specialist Lung Cancer Farmer And Grazier 09/11/21 documented as of this encounter
--- OUTSIDE RECORDS SUMMARY | 2025-02-05 08:51 | XMS_ITS | Encounter Summary ---
Author Organization [facility] Address [address] [place] [address] Care Team Providers Care Hotel Controller Name Role Phone Stephen Choi MD Primary Care Provider Unavailable David George DO Primary Care Provider UnavailGerda Purvis MD Unavailable Tere Peters MD Primary Care Provider Un available Encounter Details Date Type Department Care Team Description 05/21/2018 Release of Information Medical Records [address] [place] [id number] Abstract, Provider Social History Tobacco Use Types Packs/Day Years [...] on filedocumented in this encounter Care Teams Hotel Controller Relationship Specialty Start Date End Date Stephen Choi MD PCP - General Internal Medicine 05/15/18 06/25/21 David George DO PCP - General Internal Medicine 06/26/21 11/11/23 Tere Peters MD PCP - General Internal Medicine 11/12/23 Gerda Estrada MD Specialist Lung Cancer Central Scheduler 09/11/21 documented as of this encounter
--- OUTSIDE RECORDS SUMMARY | 2025-02-05 08:51 | XMS_ITS | Encounter Summary ---
Author Organization [facility] Address [address] [place] [address] Care Team Providers Care Welding Machine Operator Plasma Arc Name Role Phone Stephen Choi MD Primary Care Provider Unavailable David George DO Primary Care Provider UnavailGerda Purvis MD Unavailable Tere Peters MD Primary Care Provider Un available Encounter Details Date Type Department Care Team Description 03/14/2019 Old Medical Records Medical Records [address] [place] [address] Abstract, Provider Social History Tobacco Use Types [...] on filedocumented in this encounter Care Teams Welding Machine Operator Plasma Arc Relationship Specialty Start Date End Date Stephen Choi MD PCP - General Internal Medicine 05/15/18 06/25/21 David George DO PCP - General Internal Medicine 06/26/21 11/11/23 Tere Peters MD PCP - General Internal Medicine 11/12/23 Gerda Estrada MD Specialist Lung Cancer Early Childhood Coordinator 09/11/21 documented as of this encounter
--- OUTSIDE RECORDS SUMMARY | 2025-02-05 08:51 | XMS_ITS | Encounter Summary ---
Author Organization [facility] Address [address] [place] [address] Care Team Providers Care Running Rigger Name Role Phone Stephen Choi MD Primary Care Provider Unavailable David George DO Primary Care Provider UnavailGerda Purvis MD Unavailable Tere Peters MD Primary Care Provider Un available Encounter Details Date Type Department Care Team Description 06/05/2021 Orders Only Radiology - [address] [address] Radiology, Authorizing Social History Tobacco Use Types Packs/Day Years [...] Exposure Response Date Recorded In the last month, have you been in contact with someone who was confirmed or suspected to have Coronavirus / COVID-19? No / Unsure 06/05/2021 3:10 PM EST documented as of this encounter Plan of Treatment Not on file documented as of this encounter Visit Diagnoses Not on filedocumented in this encounter Care Teams Running Rigger Relationship Specialty Start Date End Date Stephen Choi MD PCP - General Internal Medicine 05/15/18 06/25/21 David George DO PCP - General Internal Medicine 06/26/21 11/11/23 Tere Peters MD PCP - General Internal Medicine 11/12/23 Gerda Estrada MD Specialist Lung Cancer Well Logger 09/11/21 documented as of this encounter
--- OUTSIDE RECORDS SUMMARY | 2025-02-05 08:51 | XMS_ITS | Encounter Summary ---
Author Organization [facility] Address [address] [place] [address] Care Team Providers Care Pitching Coach Name Role Phone David George DO Primary Care Provider Gerda Sanchez MD Unavailable Tere Peters MD Primary Care Provider Un available Reason for Visit * Reason Onset Date Comments Error 08/22/2021 Encounter Details Date Type Department Care Team Description 08/22/2021 Telephone Gastroenterology - [place] [address] [facility] [address] [place] [phone] Troy Conti MD [address] [facility] [address] [place] [address] Error Social History Tobacco Use Types Packs/Day Years [...] on filedocumented in this encounter Care Teams Pitching Coach Relationship Specialty Start Date End Date David George DO PCP - General Internal Medicine 06/26/21 11/11/23 Tere Peters MD PCP - General Internal Medicine 11/12/23 Gerda Estrada MD Specialist Lung Cancer Death Claim Clerk 09/11/21 documented as of this encounter
--- OUTSIDE RECORDS SUMMARY | 2025-02-05 08:51 | XMS_ITS | Encounter Summary ---
Author Organization [facility] Address [address] [place] [address] Care Team Providers Care Manager Department Name Role Phone David George DO Primary Care Provider Gerda Sanchez MD Unavailable Tere Peters MD Primary Care Provider Un available Reason for Visit * Reason Comments E-prescribe Rx Request Encounter Details Date Type Department Care Team Description 10/31/2023 Refill Adult Medicine - [address] [address] David George DO E-prescribe Rx Request Social [...] Miscellaneous Notes * Telephone Encounter - Abigail Schofield - 10/31/2023 11:41 AM EDT Refills ?? Last office visit: 09/16/23 ?? Last pcp: same ?? Next office visit: 12/20/23 documented in this encounter Plan of Treatment Not on file documented as of this encounter Visit Diagnoses Diagnosis Hypertriglyceridemia Pure hyperglyceridemia documented in this encounter Care Teams Manager Department Relationship Specialty Start Date End Date David George DO PCP - General Internal Medicine 06/26/21 11/11/23 Tere Peters MD PCP - General Internal Medicine 11/12/23 Gerda Estrada MD Specialist Lung Cancer Police Inspector 09/11/21 documented as of this encounter
[2025-02-05 10:23] LABS: MANUAL DIFF FLAG NO
[2025-02-05 10:27] LABS: Hematocrit 41.9 % (37.0-47.0); Hemoglobin 14.4 g/dl (12.0-16.0); Imm Gran Abs Auto 0.04 X10*3/uL (0.00-0.03); Imm Gran Pct Auto 0.4 % (0.0-0.4); Lymphocytes Absolute Auto 4.0 X10*3/uL (1.2-4.9); Mean Corpuscular HGB Conc 34.4 g/dl (31.0-35.0); Mean Corpuscular Hemoglobin 29.9 pg (27.0-33.0); Mean Corpuscular Volume 86.9 fL (80.0-98.0); NRBC Abs Auto 0.000 X10*3/uL (0.0-0.012); NRBC Pct Auto 0.0 /100WBC (0.0-0.2); Platelet Count 399 X10*3/uL (160-400); Red Blood Count 4.82 X10*6/uL (4.20-5.50); White Blood Count 11.2 X10*3/uL (4.8-10.8)
[2025-02-05 11:32] LABS: Alanine Aminotransferase 24 U/L (0-31); Anion Gap 9 (12-20); Aspartate Amino Transferase 20 U/L (5-31); Blood Urea Nitrogen 13 mg/dL (9-16); Calcium 9.2 mg/dL (8.4-10.2); Carbon Dioxide 25 mmol/L (22-29); Chloride 111 mmol/L (96-108); Cholesterol 241 mg/dL (<200); Estimated Glomerular Filt Rate > 60; HDL Cholesterol 52 mg/dL (>40); Potassium 4.0 mmol/L (3.3-5.1); Sodium 141 mmol/L (135-145); Triglycerides 217 mg/dL (<150)
== END 2025-02-05 08:20 | disposition home or self-care (01) ==
LOC: HO.HMGCLDS 08:19
PROVIDERS: PCP Internal Medicine; Visit Provider Internal Medicine
DX: I10 Essential (primary) hypertension (principal); E78.5 Hyperlipidemia, unspecified
CPT/HCPCS: 36415; 80048; 80061; 82306; 84450; 84460; 85025

== ENCOUNTER 2025-05-06 15:22 | Outpatient (AMB) | payer OTHER, SELFPAY ==
[2025-05-06 16:12] VITALS: BP 118/68; PULSE 93; RESP 16; TEMP 36.7; O2SAT 96
--- NOTE | 2025-05-06 16:12 | A.OFFPC_ITS ---
Vital Signs 05/06/25 16:12 Height 5 ft 4 in Weight 175 lb BMI 30.0 BP 118/68 Blood Pressure Location Lt brachial Position Sitting Respiration 16 Pulse 93 Pulse Source Pulse Oximeter Temp 98.1 F Temp Source Oral Pulse Oximetry (%) 96 Oxygen Delivery Method Room Air Intake Visit Reasons: 3 lida follow up Intake Note: Pt is here today for her 3mo. f/u Senior Major Gifts Officer Required: No Allergies No Known Allergies Allergy (Verified 05/06/25 16:30) Medication List - Last Reconciled 05/06/25 by Monica Perez MD amlodipine 10 mg PO DAILY atorvastatin 40 mg PO DAILY fenofibrate 54 mg PO DAILY rynhtkgohgv-asbdklwdu-zlgspqef 100-62.5-25 mcg (Trelegy Ellipta) 1 ea inhalation DAILY Tobacco use date assessed: 05/06/25 Dental Screening Dental Screen Date: 05/06/25 Did you have a dental visit in the last 12 months?: Yes Did you have a dental problem in the last 6 months where you did not have access to dental care?: No Was dental information given to patient?: Patient has dentist HPI 3 lida follow up HPI Details 53-year-old lady with past medical histo ry significant for hypertension mixed dyslipidemia today for her follow-up visit. Has been compliant with taking her medications currently on amlodipine 10 mg daily and atorvastatin 40 mg daily together with fenofibrate 54 mg once a day. Has been compliant with her medications and adhering to recommended diet. Blood pressure stable and controlled , and last fasting labs done February 02 2025 showed fasting glucose slightly elevated in the prediabetic range and elevated total cholesterol and LDL cholesterol noted. She continues to smoke cigarettes however with no desire to quit at present time [facility] Medical History (Updated 05/06/25 @ 16:49 by Monica Perez MD) History of colonic polyps Not ready to quit smoking History of in vitro fertilization Hx of ectopic Dyslipidemia Essential hypertension Surgical History Previous section H/O bilateral salpingectomy Family History Maternal Grandfather Substance use disorder Paternal Grandmother Substance use disorder Mother Mental health disorder Social History Housing: Apartment Patient Tobacco Use Status: Current someday Tobacco user e-Cigarette/Vaping Use: Former Use service: No Current occupational status: employed Cognitive needs: No Hearing needs: No Vision needs: Yes Questionnaire PHQ-9 Over the last 2 weeks, how often have you been bothered by any of the following problems? 1. Little interest or pleasure in doing things: not at all 2. Feeling down, depressed, or hopeless: not at all 3. Trouble falling or staying asleep, or sleeping too much: not at all 4. Feeling tired or having little energy: not at all 5. Poor appetite or overeating: not at all 6. Feeling bad about yourself - or that you are a failure or have let yourself or your family down: not at all 7. Trouble concentrating on things, such as reading the newspaper or watching television: not at all 8. Moving or speaking so slowly that other people could have noticed. Or the opposite - being so fidgety or restless that you have been moving around a lot more than usual: not at all 9. Thoughts that you would be better off or of hurting yourself in some way: not at all Total score: 0 Depression Screening Interpretation: Negative Depression Screening Done: Yes Source: Developed by Drs. Basil Schuler, Faby Benavides, Castillo Burroughs and colleagues, with an educational hermelinda from [employer]. Thrive Questionnaire Date Thrive assessed: 02/02/25 I am a: Patient What is your living situation today?: I have a steady place to live Within the past 12 months, did the food you bought not last and you didn't have the money to get more?: Never true Within the past 12 months, did you worry whether your food would run out before you got money to buy more?: Never true Do you have trouble paying for medicines?: No Do you have trouble getting transportation to medical appointments?: No Do you have trouble paying your heating and electricity bill?: No Do you have trouble taking care of your child, family member or friend?: No Do you have trouble with day-to-day activities such as bathing, preparing meals, shopping, managing finances, etc.?: No Are you currently unemployed and looking for a job?: No Are you interested in more education?: No Please select the resources that you would like help with: None Currently or been in a relationship where the following occur: No concerns reported THRIVE Score: 0 AUDIT C Alcohol Use Questionnaire (AUDIT-C) 1. How often do you have a drink containing alcohol?: 2-3 times a week 2. How many drinks containing alcohol do you have on a typical day when you are drinking?: 1 or 2 3. How often do you have six or more drinks on one occasion?: Never Total Score: 3 LEONOR-7 AMB Questionnaire LEONOR-7 Date LEONOR - 7 assessed: 02/02/25 Feeling nervous, anxious, or on edge: 0 = Not at all Not being able to stop or control worryin = Not at all Worrying too much about different things: 0 = Not at all Trouble relaxin = Not at all Being so restless that it is hard to sit still: 0 = Not at all Becoming easily annoyed or irritable: 0 = Not at all Feeling afraid as if something awful might happen: 0 = Not at all Total LEONOR-7 score (0-4 normal; 5-9 mild; 10-14 moderate; 15-21 severe): 0 Source: Developed by Drs. Basil Schuler, Faby Benavides, Castillo Burroughs and colleagues, with an educational hermelinda from [employer]. Review of Systems Const All systems reviewed & are unremarkable except as noted in HPI and below Eyes Details: Wears bifocal lenses, goes to lens craftters ENT Reports no additional complaints Card Denies chest pain, Denies rapid heart rate, Denies irregular heart rhythm and Denies dyspnea Resp Denies cough and Denies dyspnea GI Reports no additional complaints Musc Reports no additional complaints Skin/Breast Details: as per HPI Physical exam (Primary Care) Vital Signs: Last Vital Signs Temp 98.1 F 05/06/25 16:12 Pulse 93 05/06/25 16:12 Resp 16 05/06/25 16:12 BP 118/68 05/06/25 16:12 Pulse Ox 96 05/06/25 16:12 Oxygen Delivery Method Room Air 05/06/25 16:12 BMI result Body Mass Index 30.0 Tobacco/Smoking Status: Tobacco use Status Tobacco use date assessed 05/06/25 05/06/25 16:16 Patient Tobacco Use Status Current someday Tobacco 05/06/25 16:16 e-Cigarette/Vaping Use Former Use 05/06/25 16:16 PHQ-9: PHQ-9 Score PHQ-9: Total score 0 05/16/25 20:59 Depression Screening Interpretation: Negative Thrive Assessment: Date of Thrive Assessment Date Thrive assessed 02/02/25 05/06/25 16:16 Currently or been in a relationship where the following occur: No concerns reported Const General: no acute distress and alert Orientation/consciousness: patient oriented x3 HENMT Ears: external ears normal General nose exam: Normal external nose present Mouth: Normal oral and palatal mucosa present and moist mucous membranes Eyes General: appearance normal, both eyes and all related structures Neck Neck: Yes full ROM, Yes no lymphadenopathy and Yes supple Resp Effort & Inspection: normal respiratory effort and able to speak in complete sentences Auscultation: clear to auscultation bilaterally Cardio Rate: regular rate Rhythm: regular rhythm Heart sounds: S1 normal heart sound present and S2 normal heart sound present GI Palpation (GI): Soft to palpation, nontender and no masses Auscultation: normal bowel sounds Neuro General: patient oriented x3, gait normal, tone normal, moves all extremities, Normal light touch and pain sensation and no focal motor deficits Cranial nerves: Yes CN's II-XII intact bilaterally Cognition (Neuro): normal cognition Extrem General: Yes full ROM, Yes no joint enlargement, Yes no clubbing, cyanosis or edema and Yes no calf tenderness Psych Appearance: grossly normal and well kempt Mental Status: mental status grossly normal Speech and movement: Normal speech and movement present Affect: normal affect Coding Level of Care Code Est Pt Level 4 (18319) Diagnoses Encounter for screening for malignant neoplasm of cervix Z12.4 History of colonic polyps Z86.0100 Essential hypertension I10 Dyslipidemia E78.5 Assessment & Plan Assessment & Plan (1) Encounter for screening for malignant neoplasm of cervix: Code(s): Z12.4 - Encounter for screening for malignant neoplasm of cervix Plan: Referred to [facility] for routine Pap and pelvic exam (2) History of colonic polyps: Comment: In [facility] 2021 Code(s): Z86.0100 - Personal history of colon polyps, unspecified Category: Medical Plan: Due for repeat colonoscopy screening, history of polyps. Referred to [facility] (3) Essential hypertension: Code(s): I10 - Essential (primary) hypertension Category: Medical Plan: Blood pressure at goal of less than 130/80. Continue with amlodipine 10 mg daily. Reinforced importance of following a low sodium diet, getting regular exercise, and lowering stress levels. (4) Dyslipidemia: Code(s): E78.5 - Hyperlipidemia, unspecified Category: Medical Plan: Reviewed recent fasting lipid results with patient, continue with atorvastatin 40 mg daily in addition to adherence to health eating habits and getting regular exercise, repeat another fasting lipid panel in May 2025 Orders: Orders Basic Metabolic Panel Fasting 05/22/25 I10 - Essential (primary) hypertension, E78.5 - Hyperlipidemia, unspecified Aspartate Amino Transferase 05/22/25 I10 - Essential (primary) hypertension, E78.5 - Hyperlipidemia, unspecified Hemoglobin A1c 05/22/25 I10 - Essential (primary) hypertension, E78.5 - Hyperlipidemia, unspecified Lipid Panel 05/22/25 I10 - Essential (primary) hypertension, E78.5 - Hyperlipidemia, unspecified Alanine Aminotransferase 05/22/25 I10 - Essential (primary) hypertension, E78.5 - Hyperlipidemia, unspecified Vitamin D 25-OH Total 05/22/25 I10 - Essential (primary) hypertension, E78.5 - Hyperlipidemia, unspecified Referrals CONFIGURATION MANAGEMENT MANAGER Referral Z12.4 - Encounter for screening for malignant neoplasm of cervix Gastroenterology Referral Z86.0100 - Personal history of colon polyps, unspecified
--- OUTSIDE RECORDS SUMMARY | 2025-05-06 19:21 | XMS_ITS | Clinical Summary ---
Author Organization [facility] Prior to 10/17/24 Address [address] [place] [address] Care Team Providers Care Germ Drier Name Role Phone David George DO Primary Care Provider [phone] Allergies No known active allergies Medications Medication [...] 2025 11/14/2020, 10/24/2020 Influenza Vaccine (#1) 2025 0, 04/07/2019 DTap / Tdap / Td (2 - Td or Tdap) 09/12/2030 09/12/2020 RSV Ped < 20 months Aged Out No longe r eligible based on patient's age to complete this topic Care Teams Germ Drier Relationship Specialty Start Date End Date David George DO [address] [place], [place] PCP - General Family Medicine 04/11/22
--- OUTSIDE RECORDS SUMMARY | 2025-05-06 19:21 | XMS_ITS | Encounter Summary ---
Author Organization [facility] Address [address] [place] [address] Care Team Providers Care Development Specialist Name Role Phone Monica Perez MD Primary Care Provider [phone] Encounter Details Date Type Department Care Team ([facility] st Contact Info) Description 04/27/2025 Telephone Pulmonology - [address] [place] [address] Eloisa Castillo MD [address] [place] [address] Social History Tobacco Use Types Packs/Day Years Used Date Smoking Tobacco: Every Day Cigarettes Smokeless Tobacco: Never Comments:Smoking 10 cigs edin ly Alcohol Use Standard Drinks/Week Comments Yes 0 (1 standard drink = 0.6 oz pur e alcohol) Comments No Sex and Gender Information Value Date Recorded Sex Assigned at Not on file Legal Sex Female 10:01 AM EST Gender Identity Not on file Sexual Orientation Not on file documented as of this encounter Progress Notes * Kellen Delarosa - 04/27/2025 3:16 PM EST Patient called while on the phone with her insurance [employer], a prior authorization or a peer to peer is needing to be done for the trelegy ellipta. Whether it is called in or done online the priorauthorization needs to state that she has used other medications, specifically the anoro ellipta and they have not worked. To call in a prior authorization or request a peer to peer please call [phone] documented in this encounter Plan of Treatment Upcoming Encounters Date Type Department Care Team (Late st Contact Info) Description 01/10/2026 9:30 AM EDT Office Visit Pulmonology - [place] [address] [facility] [address] [place] [phone] Eloisa Castillo MD [address] [place] [phone] documented as of this encounter Visit Diagnoses Not on filedocumented in this encounter Care Teams Development Specialist Relationship Specialty Start Date End Date Monica Perez MD [address] [place] [phone] PCP - General Internal Medicine 04/12/25 documented as of this encounter
--- OUTSIDE RECORDS SUMMARY | 2025-05-06 19:22 | XMS_ITS | Clinical Summary ---
Author Organization [facility] [address] [facility] Address [address] [place] [address] Phone Care Team Providers Care Body Mechanic Name Role Phone Monica Perez MD Primary Care Provider Allergies No known active allergies Medications amLODIPine (NORVASC) 10 mg tablet Take 1 tablet (10 mg total) by mouth 1 (one) time each day. 90 each 2 4 Active atorvastatin (LIPITOR) 40 mg tablet Take 1 tablet (40 mg total) by mouth 1 (one) time each day. 90 each 2 4 Active fenofibrate (LOFIBRA) 54 mg tablet Take 1 tablet (54 mg total) by mouth 1 (one) time each day. 90 each 2 4 Active ibuprofen (ADVIL,MOTRIN) 800 mg tablet Sig - Route: Take 1 Tablet by mouth every 8 hours as needed for Pain for up to 30 days. - Oral Active Trelegy Ellipta 100-62.5-25 mcg inhalerIndicati ons:Chronic obstructive pulmonary disease, unspecified (CMS/HCC V24, CMS/HCC V28) INHALE 1 PUFF INTO LUNGS DAILY FOR 30 DAYS 60 each 5 Active Breztri Aerosphere 160-9-4.8 mcg/actuation HFA aerosol inhaler inhaler INHALE 2 PUFFS BY MOUTH 2 TIMES A DAY 10.7 each 12 5 Active budesonide-glyc opyr-formoterol (Breztri Aerosphere) 160-9-4.8 mcg/actuation HFA aerosol inhaler inhaler Inhale 2 puffs by mouth 2 (two) times a day. 1 each 12 5 04/17/20 25 Discontinued Active Problems Problem Noted Date Diagnosed Date Leucocytosis 06/29/2022 Thrombocytosis 06/29/2022 Emphysema, unspecified 05/02/2021 Overview (07/16/2024): PFT 05/01/21 HTN (hypertension) 09/16/2020 Hypertriglyceridemia 09/16/2020 Overview (07/16/2024): ASCVD risk is 8.2%. Colon polyps 05/22/2020 Overview (07/16/2024): Rpt CN in one year Asthma 03/17/2019 GERD (gastroesophageal reflux disease) 9 Encounters Date Type Department Care Team Description 04/27/2025 Telephone Pulmonology - [address] [phone] Eloisa Castillo MD 04/13/2025 Telephone Pul[address] [phone] Eloisa Castillo MD 04/12/2025 9:14 AM EST - 04/12/2025 11:59 PM EST Hospital Encounter Radiology Department - [address] [phone] Encounter for other screening for malignant neoplasm of breast Discharge Disposition: Home or Self Care 04/12/2025 Telephone Pulmonology [address] [phone] Eloisa Castillo MD 04/08/2025 Telephone [address] [phone] Eloisa Castillo MD 03/11/2025 Telephone Pulmonology [address] [phone] Eloisa Castillo MD from Last 3 Months Immunizations Immunization Administration Dates Next Due Influenza Quadravalent, MDCK , 0.5ml, preservative free (Flucelvax) 6mo and older 03/17/2020,04/07/2019 Pfizer SARS-CoV-2 COVID-19, mRNA, LNP-S, preservative free 11/14/2020 Pneumococcal polysaccharide 23 valent (Pneumovax 23) 2yo and older 09/12/2020 Tdap Tetanus diptheria acell ular pertussis (Boostrix; Adacel) 7yo and older 09/12/2020 Surgical History Surgery Date Site/Laterality Comments SECTION 05/08/2007 PROCEDURE: HISTORICAL WISDOM TOOTH EXTRACTION PROCEDURE: HISTORICAL WISDOM TEETH EXTRACTION OTHER SURGICAL HISTORY PROCEDURE: OR TX ECTOPIC W/O SALPING&/OOPHORECTOMY; COMMENT: fallopian tubes [...] Sexual Orientation Not on file Obstetrics History Para Term AB IAB SAB Ectopic Multiple Livin g Live Births 2 2 2 2 Date Outcome GA Total Labor Labor/2nd/3rd Weight Sex Type Anes PTL Krystal A1 A5 Name Clin Term Term Last Filed Vital Signs Vital Sign Reading [...] 9:30 AM EDT Office Visit Pulmonology - [address] [place] [address] Eloisa Castillo MD [address] [place] [phone] Health Maintenance Due Date Last Done Comments Hepatitis B Vaccines (1 of 3 - 19+ 3-dose series) 1988 RSV Immunization Adult Patients (1 - Risk 50-74 years 1-dose series) 10/02/2019 Zoster Vaccines (1 of 2) 10/02/2019 Pneumococcal Vaccine: 50+ Years (2 of 2 - PCV) 09/12/2021 09/12/2020 HIV Screening 04/28/2022 Social Influencers of Health Screening 04/28/2022 Depression Screening 05/20/2024 07/29/2023 Hypertension/CHF/CAD Annual BMP Blood Test 07/28/2024 07/29/2023 Colorectal Cancer Screening: Colonoscopy 08/29/2024 08/29/2021, 08/28/2021 COVID-19 Vaccine ( season) 2025 07/09/2022, 11/14/2020, 10/24/2020 Breast Cancer Screening 04/12/2027 04/12/20, 10/21/2023, 10/21/2023, Additional history exists Cervical Cancer Screening: HPV 09/22/2028 09/23/2023 Cholesterol Screening (Lipid Panel) 01/05/2029 01/06/2024, 01/06/2024 DTaP,Tdap,and Td Vaccines (2 - Td or Tdap) 09/12/2030 09/12/2020 Hepatitis C Screening Completed 07/23/2022 Influenza Vaccine Completed 02/02/2025, , 03/17/2020, Additional history exists HIB Vaccines Aged Out No longer eligi [...] Procedure Name Priority Date/Time Associated Diagnosis Comments MG MAMMO DIGITAL SCREENING W ANTONIO BILAT Routine 04/12/2025 9:29 AM EST Encounter for other screening for malignant neoplasm of breast LIPID PANEL Routine 01/06/2024 HPV Routine 09/23/2023 DEPRESSION SCREENING Routine 07/29/2023 ANNUAL BMP BLOOD TEST Routine 07/29/2023 HEPATITIS C SCREENING Routine 07/23/2022 COLONOSCOPY Routine 08/28/2021 from Last 3 Months or Most Recently Relevant to Health Maintenance Results * MG Mammo Digital Screening w Antonio bilat (04/12/2025 9:29 AM EST) Anatomical Region Laterality Modality Breast Bilateral Mammography 04/13/2025 12:4 0 PM EST Impressions 04/13/2025 12:44 PM EST Benign. BI-RADS CATEGORY: 1 - NEGATIVE RECOMMENDATION: Screening bilateral mammogram is recommended in 1 year. Mammo Location: [facility], [address] [place] [address], [id number], . -------- FINAL REPORT -------- Dictated By: Palma Mathews Dictated Date: 04/13/2025 12:40 ET Assigned Physician: Palma Mathews Reviewed and Electronically Signed By: Palma Mathews Signed Date: 04/13/2025 12:44 ET Workstation ID: [id number] Transcribed By: Self Edit Transcribed Date: 04/13/2025 12:40 ET Narrative 04/13/2025 12:44 PM EST CLINICAL: 54 years old, Female, routine annual exam. COMPARISON: Mammograms dating back to 06/05/2021 with most recent of 10/21/2023. TECHNIQUE: Bilateral MLO and CC views were obtained digitally with 3-D mammogram (digital breast tomosynthesis). Computer-aided detection was utilized in evaluation of this exam (CAD). FINDINGS: There is no evidence of suspicious mass or architectural distortion. No worrisome calcifications are evident. There has been no significant change from prior exam(s). BREAST DENSITY: B - There are scattered areas of fibroglandular density. Procedure Note Palma Mathews MD - 04/13/2025 CLINICAL: 54 years old, Female, routine annual exam. COMPARISON: Mammograms dating back to 06/05/2021 with most recent of10/21/2023. TECHNIQUE: Bilateral MLO and CC views were obtained digitally with 3-Dmammogram (digital breast tomosynthesis). Computer-aided detection wasutilized in evaluation of this exam (CAD). FINDINGS: There is no evidence of suspicious mass or architectural distortion. Noworrisome calcifications are evident. There has been no significantchange from prior exam(s). BREAST DENSITY: B - There are scattered areas of fibroglandular density. IMPRESSION: Benign. BI-RADS CATEGORY: 1 - NEGATIVE RECOMMENDATION: Screening bilateral mammogram is recommended in 1 year. Mammo Location: [facility], [address] [place] [address], [phone], . -------- FINAL REPORT -------- Dictated By: Palma Mathews Dictated Date: 04/13/2025 12:40 ET Assigned Physician: Palma Mathews Reviewed and Electronically Signed By: Palma Mathews Signed Date: 04/13/2025 12:44 ET Workstation ID: [id number] Transcribed By: Self Edit Transcribed Date: 04/13/2025 12:40 ET Fay Dominguez [facility] IMG BI PROCEDURES Final Resul t * Lipid panel (01/06/2024) [facility] LDL/HDL Ratio 3 0 - 4 Triglycerides 108 0 - 150 mg/dL Cholesterol 154 0 - 200 mg/dL HDL 57 >=40 mg/dL LDL Cholesterol 76 0 - 100 mg/dL Blood Venous blood specimen / Unknown [facility] Provider LAB BLOOD ORDERABLES Airam l Result * Cervical Cancer Screening: HPV (09/23/2023) [facility] Cervical Cancer Screening: HPV Negative Abstracted [facility] Provider HEALTH MAINTENANCE Final Result * Annual BMP Blood Test (07/29/2023) [facility] Annual BMP Blood Test Abstracted [facility] Provider HEALTH MAINTENANCE Final Result * Depression Screening (07/29/2023) [facility] Depression Screening Abstracted [facility] Provider HEALTH MAINTENANCE Final Result * Hepatitis C Screening (07/23/2022) [facility] Hepatitis C Screening Abstracted [facility] Provider HEALTH MAINTENANCE Final Result * Colonoscopy (08/28/2021) [facility] Colonoscopy No interpretation abstracted Anatomical Region Laterality Modality Other us Historical Provider HEALTH MAINTENANCE Final Result from Last 3 Months or Most Recently Relevant to Health Maintenance Insurance [facility] [employer] Care Teams Body Mechanic Relationship Specialty Start Date End Date Monica Perez MD [address] [place] [phone] PCP - General Internal Medicine 04/12/25
== END 2025-05-06 17:01 | disposition home or self-care (01) ==
PROVIDERS: PCP Internal Medicine; Visit Provider Internal Medicine
DX: Z12.4 Encounter for screening for malignant neoplasm of cervix (principal); Z86.0100 Personal history of colon polyps, unspecified; I10 Essential (primary) hypertension; E78.5 Hyperlipidemia, unspecified

== ENCOUNTER → 2025-05-06 15:22 | Outpatient (BNVA) | payer OTHER, SELFPAY | PROVIDERS: PCP Internal Medicine; Visit Provider Internal Medicine | DX: I10 Essential (primary) hypertension (principal); E78.5 Hyperlipidemia, unspecified; F17.210 Nicotine dependence, cigarettes, uncomplicated; Z86.0100 Personal history of colon polyps, unspecified | CPT/HCPCS: 99212 ==